=== PATIENT | female | born 1970 | race Caucasian/White ===

== ENCOUNTER → 2017-12-12 | Outpatient (CLI) | payer OTHER ==
--- NOTE | 2017-12-12 14:44 | DIAGNOSTIC IMAGING REPORT ---
(RENAL)RETROPERITON COMP HISTORY: Soft tissue area R30.0 [id number] Hematuria, [id number] Nephrolithiasisl COMPARISON: 09/09/2009 FINDINGS: Right kidney: Maximum dimension 9.1 cm. No evidence for hydronephrosis. Normal corticomedullary differentiation and cortical thickness. Left kidney: Maximum dimension 9.3 cm. No evidence for hydronephrosis. Normal corticomedullary differentiation and cortical thickness. Bladder: No bladder wall thickening. The bilateral ureteral jets were identified. IMPRESSION: Normal renal ultrasound. The above report was generated using voice recognition software. It may contain grammatical, syntax or spelling errors. Electronically signed by: Michael Giron M.D. 12/12/2017 2:42 PM Dictated Date/Time: 12/12/2017 2:42 PM
--- NOTE | 2017-12-12 14:52 | DIAGNOSTIC IMAGING REPORT ---
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 FINDINGS: The soft tissues, psoas shadows, renal outlines and intestinal gas pattern appear normal. There is no evidence for bowel obstruction. No abnormal abdominal calcifications are seen. Poor visibility of the urinary tracts due to overlying bowel content IMPRESSION: Normal study. Poor visibility of the urinary tracts due to overlying bowel content. The above report was generated using voice recognition software. It may contain grammatical, syntax or spelling errors. Electronically signed by: Michael Giron M.D. 12/12/2017 2:50 PM Dictated Date/Time: 12/12/2017 2:50 PM
== END | disposition home health service (06) ==
LOC: C.ULTR 13:37
PROVIDERS: ATTEND Urology
DX: R30.0 Dysuria (principal); R31.29 Other microscopic hematuria; N20.0 Calculus of kidney